=== PATIENT | female | born 1930 | race Caucasian/White ===

== ENCOUNTER 2018-01-18 14:35 | Inpatient (IN) | payer OTHER ==
[~2018-01-18] VITALS: Ht 154.9 cm; Wt 72.6 kg
--- NOTE | ~2018-01-18 | HC ---
[facility] [place] [address] CONSULTATION Name: LONA GOLDMAN Room #: 409-P [facility] IN M.R.#: [id number] Admission: 01/18/18 Attend Phys: Michael Haley MD Discharge: 01/21/18 Date of : 34 Report #: [id number] THIS REPORT FOR: //name// CC: Michael Haley NO PCP DATE OF SERVICE: 01/19/2018 REASON FOR CONSULTATION: Right tib-fib fracture. HISTORY OF PRESENT ILLNESS: The patient is an 87-year-old female who yesterday walked outside in the back of her house and had ice on her shoes. She fell on her marble floor and injured her right ankle. She was brought to the Emergency Room, found to have a comminuted distal right tib-fib fracture. She has been admitted for definitive treatment. PAST MEDICAL HISTORY: Significant for hypertension, GERD, glaucoma, legally blind. CURRENT MEDICATIONS: Have been reviewed and are on the chart. ALLERGIES: Include an UNKNOWN ANTIBIOTIC as well as CORTISONE. SOCIAL HISTORY: She does not smoke, drink or use illicit drugs. PHYSICAL EXAMINATION: GENERAL: This is a frail-appearing elderly female in no acute distress. She is alert, pleasant, cooperative with exam. EXTREMITIES: Examination of the right lower extremity shows her to have a short leg splint in place. She is neurologically intact. She has a brisk capillary refill. IMAGING: X-ray examination, three view of the right ankle, as well as CT scan of the right ankle shows her to have a distal third comminuted tibia and fibular fracture with some extension into the joint. ASSESSMENT: Right distal tibia-fibula fracture. PLAN: Treatment options were discussed today with her. I am recommending ORIF. We discussed postoperative course including prolonged nonweightbearing until healing of the fracture. She is understanding and wished to proceed. [facility] [address] [facility] [place] [address] CONSULTATION Name: LONA GOLDMAN Room #: 409-P [facility] IN .R.#: [id number] Admission: 01/18/18 Attend Phys: Michael Haley MD Discharge: 01/21/18 Date of : 34 Report #: [id number] Thank you for allowing me to participate in care of the patient. <ELECTRONICALLY SIGNED> By: Justo Mendoza MD 01/24/18 0724 0720 0736 Justo Mendoza MD /nt
--- NOTE | ~2018-01-18 | EKG ---
[address] [place] [address] ELECTROCARDIOGRAM REPORT Name: LONA GOLDMAN Room #: 409-P ADM IN M.R.#: [id number] Admission: 01/18/18 Attend Phys: Michael Haley MD Discharge: Date of : 34 Report #: [id number] THIS REPORT FOR: //name// [facility] ED Test Date: 2018-01-18 Test Time: 16:39:24 Pat Name: LONA GOLDMAN Department: Room: 409 Gender: F Cook Seafood: jerardo : 1930 Requested By: Dionne Ha Order Number: [id number] MD: Shubham Nielsen Measurements Intervals [place] Rate: 72 P: 50 LA: 177 QRS: -42 QRSD: 137 T: 126 QT: 419 QTc: 459 Interpretive Statements Sinus rhythm Left bundle branch block No previous ECG available for comparison Electronically Signed On 01-19-2018 8:39:16 [employer] by Shubham Nielsen [email or web address] <ELECTRONICALLY SIGNED> By: Shubham Nielsen MD, [facility] 01/19/18 0839 1639 1639 Shubham Nielsen MD, FACC /EPI
--- NOTE | ~2018-01-18 | O ---
[facility] [place] [address] OPERATIVE REPORT Name: LONA GOLDMAN Room #: 409-P [facility] IN M.R.#: [id number] Admission: 01/18/18 Attend Phys: Michael Haley MD Discharge: 01/21/18 Date of : 34 Report #: [id number] THIS REPORT FOR: //name// CC: Michael Haley NO PCP DATE OF SERVICE: 01/19/2018 PREOPERATIVE DIAGNOSIS: Right distal third tibia-fibula fracture. POSTOPERATIVE DIAGNOSIS: Right distal third tibia-fibula fracture. PROCEDURE: ORIF right distal third tibia and ORIF right distal third fibula. SURGEON: Justo Mendoza M.D. INVESTIGATIVE AGENT: Loretta Byers PA-C. INDICATIONS FOR INVESTIGATIVE AGENT: Throughout the case, extensive retraction and manipulation of the leg was required. This was afforded to me by my medical assistant dermatology. ANESTHESIA: LMA. IMPLANTS: Synthes short distal lateral fibular locking plate and a short distal medial tibial locking plate with multiple locking screws in each. TOURNIQUET TIME: 90 minutes. ESTIMATED BLOOD LOSS: 25 mL. COMPLICATIONS: None. SPECIMENS: None. CONDITION UPON LEAVING THE OPERATING ROOM: Stable. INDICATIONS FOR PROCEDURE: The patient is an 87-year-old female who fell yesterday at home and sustained a right distal third displaced tibia and fibula fracture. After discussion with her, she elected for ORIF. DESCRIPTION OF PROCEDURE: Risks, benefits, alternatives and complications were discussed in detail with the patient, including but not limited to risk of anesthesia; risk of damage to nerves, arteries or blood vessels; risk for infection or bleeding; risk for continued ankle pain, malunion, nonunion and need for reoperation. Informed consent was obtained from the patient. [address] [address] OPERATIVE REPORT Name: ARISTIDES GOLDMANSRINISabi Room #: 409-P DIS IN M.R.#: [id number] Admission: 01/18/18 Attend Phys: Michael Haley MD Discharge: 01/21/18 Date of : 34 Report #: [id number] The right ankle was appropriately marked in the preoperative holding area. She was brought to the operating room and placed in the supine position on the operating room table. LMA anesthesia was induced without complication and a tourniquet placed on the right thigh. Right lower extremity was prepped and draped in normal sterile fashion. Timeout was performed properly identifying the patient and procedure as well as the instrumentation. All in the operating room were in agreement. Right lower extremity was exsanguinated, tourniquet was inflated. Tourniquet time was approximately 90 minutes. Standard lateral approach to the fibula was made with a 15 blade through the skin. Dissection was taken down sharply to the fibula. It was decided to plate the fibula first to get the tibia out to the right in length. There was significant comminution and it was decided to just bridge plate this fibula fracture. A distal lateral fibular locking plate was selected. This was a short plate. The fracture was held out to length. The plate was applied and multiple distal locking screws as well as 2 proximal cortical screws and one proximal locking screw were placed. Fluoroscopic imaging was used to verify adequate fracture reduction and placement of hardware. Attention was then turned to the fixation of the tibia and a direct medial approach to the medial malleolus was made with a 15 blade through the skin. Dissection was taken down to the medial malleolus and care was taken to protect the saphenous vein and nerve. The dissection was taken posterior and anterior on the tibia. A Sotelo elevator was used to dissect proximally subperiosteally. Fracture site was identified and cleaned out and then held reduced with a [id number] reduction forceps. A distal medial locking plate was then slid submuscularly up the tibia and provisionally fixed with a K-wire. Fluoroscopic imaging was brought in to verify adequate placement of the plate as well as reduction of the fracture. Seven distal locking screws were then placed and 3 proximal locking screws were placed. The proximal 2 most screws were placed using a percutaneous technique. After this, final fluoroscopic images were taken to verify adequate fracture reduction and placement of hardware as was the case. The wounds were thoroughly irrigated with normal saline and closed with 2-0 Vicryl and 3-0 nylon. Soft dressing of Adaptic, 4 x 4, Webril and a short-leg splint were applied. The patient tolerated this procedure well and went to the recovery room under the care of anesthesia postoperatively. <ELECTRONICALLY SIGNED> By: Justo Mendoza MD 01/24/18 0724 1023 1044 Justo Mendoza MD /nt
[2018-01-18 14:36] VITALS: BP 150/62
[2018-01-18 15:12] LABS: ABSOLUTE NEUTROPHILS 4.7 thou/uL (1.4-8.2); BASOPHILS 1.2 % (0.0-2.0); EOSINOPHILS 4.9 % (0.0-3.0); HEMATOCRIT 38.5 % (37.0-47.0); HEMOGLOBIN 12.8 gm/dL (12.0-15.0); LYMPHOCYTES 16.4 % (24.0-44.0); MCH 31.3 pg (26.0-34.0); MCHC 33.4 g/dL (28.0-37.0); MCV 93.7 fL (80.0-100.0); MONOCYTES 9.3 % (1.0-8.0); PLATELET COUNT 325 thou/uL (150-400); POLYS 68.2 % (36.0-66.0); RDW 14.1 % (10.5-14.5); WBC 6.9 thou/uL (4.0-11.0)
[2018-01-18] MEDS ORDERED: COZAAR 50 MG TA50 M2 PO (15:14)
[2018-01-18] MEDS ORDERED: NORVASC5 MG PO (15:14)
[2018-01-18] MEDS ORDERED: BETIMOL5 ML OPHTHALMIC (15:15)
[2018-01-18] MEDS ORDERED: PRILOSEC 20 MG20 MG PO (15:15)
[2018-01-18] MEDS ORDERED: HYDROCODON-ACE1 EAC7 PO (15:20)
[2018-01-18 15:22] LABS: CALCIUM 9.6 mg/dL (8.5-10.1); CREATININE 1.3 mg/dL (0.6-1.0); POTASSIUM 4.3 mmol/L (3.5-5.1)
[2018-01-18 15:46] LABS: PROTIME 10.5 Seconds (9.3-11.4)
[2018-01-18 18:01] LABS: CHOLESTEROL 128 mg/dL (<200); HDL CHOLESTEROL 61 mg/dL (>40); LDL CHOLESTEROL 45 mg/dL (<100); TC:HDL 2.1 Ratio (Not establshd); TRIGLYCERIDE 110 mg/dL (<150); VLDL 22 mg/dL (<40)
[2018-01-18 18:02] LABS: SERUM ASSESSMENT Clear
[2018-01-18 18:10] VITALS: BP 160/62
[2018-01-18 18:32] LABS: FOLIC ACID 12.3 ng/mL (8.6-58.9)
[2018-01-18 18:52] VITALS: BP 131/68
[2018-01-18 20:40] VITALS: BP 141/72
[2018-01-18 22:41] LABS: URINE BILIRUBIN NEGATIVE (Negative); URINE BLOOD NEGATIVE (Negative); URINE CLARITY SL CLOUDY; URINE COLOR YELLOW; URINE GLUCOSE-RANDOM* NEGATIVE (Negative); URINE KETONES NEGATIVE (Negative); URINE LEUKOCYTES-REFLEX NEGATIVE (Negative); URINE NITRITE-REFLEX NEGATIVE (Negative); URINE PROTEIN (DIPSTICK) NEGATIVE (Negative); URINE SPECIFIC GRAVITY 1.025 (1.005-1.035); URINE UROBILINOGEN 0.2 E.U./dl (0.2-1.0)
[2018-01-19 00:02] VITALS: BP 145/62
[2018-01-19 03:36] VITALS: BP 145/67
[2018-01-19 04:50] LABS: ABSOLUTE NEUTROPHILS 5.1 thou/uL (1.4-8.2); BASOPHILS 0.8 % (0.0-2.0); EOSINOPHILS 0.8 % (0.0-3.0); HEMATOCRIT 35.3 % (37.0-47.0); HEMOGLOBIN 11.7 gm/dL (12.0-15.0); LYMPHOCYTES 15.8 % (24.0-44.0); MCH 30.8 pg (26.0-34.0); MCHC 33.3 g/dL (28.0-37.0); MCV 92.5 fL (80.0-100.0); MONOCYTES 10.2 % (1.0-8.0); PLATELET COUNT 310 thou/uL (150-400); POLYS 72.4 % (36.0-66.0); RBC 3.81 mil/uL (4.20-5.00)
[2018-01-19 04:56] LABS: CALCIUM 8.9 mg/dL (8.5-10.1); CREATININE 1.3 mg/dL (0.6-1.0); MAGNESIUM 1.9 mg/dL (1.8-2.4); POTASSIUM 4.2 mmol/L (3.5-5.1)
[2018-01-19 08:18] VITALS: BP 115/66
[2018-01-19 10:08] LABS: URINE BILIRUBIN NEGATIVE (Negative); URINE BLOOD NEGATIVE (Negative); URINE CLARITY CLEAR; URINE COLOR YELLOW; URINE GLUCOSE-RANDOM* NEGATIVE (Negative); URINE KETONES NEGATIVE (Negative); URINE LEUKOCYTES 1+ (Negative); URINE NITRITE NEGATIVE (Negative); URINE PROTEIN (DIPSTICK) TRACE (Negative); URINE SPECIFIC GRAVITY >= 1.030 (1.005-1.035); URINE UROBILINOGEN 0.2 E.U./dl (0.2-1.0)
[2018-01-19 10:19] LABS: BACTERIA 1-9 Few /HPF (None Seen); CASTS None Seen /LPF (None Seen); CRYSTALS None Seen /LPF (None Seen); SQUAMOUS 0-3 Few /LPF (0-3); URINE RBC None Seen /HPF (0-2); URINE WBC 6-15 Few /HPF (0-5)
[2018-01-19 16:22] VITALS: BP 130/49
[2018-01-19 20:00] VITALS: BP 105/49
[2018-01-20 04:00] VITALS: BP 130/66
[2018-01-20 07:15] VITALS: BP 136/62
[2018-01-20 12:27] LABS: HEMATOCRIT 30.5 % (37.0-47.0); HEMOGLOBIN 10.2 gm/dL (12.0-15.0); MCH 31.2 pg (26.0-34.0); MCHC 33.3 g/dL (28.0-37.0); MCV 93.8 fL (80.0-100.0); RBC 3.25 mil/uL (4.20-5.00); RDW 14.1 % (10.5-14.5); WBC 8.5 thou/uL (4.0-11.0)
[2018-01-20 12:46] LABS: CREATININE 1.2 mg/dL (0.6-1.0); MAGNESIUM 1.9 mg/dL (1.8-2.4); POTASSIUM 3.7 mmol/L (3.5-5.1)
[2018-01-20 15:59] VITALS: BP 131/45
[2018-01-20 20:00] VITALS: BP 125/44
[2018-01-21 04:00] VITALS: BP 132/53
[2018-01-21 06:53] LABS: MCH 31.1 pg (26.0-34.0); MCHC 33.3 g/dL (28.0-37.0); MCV 93.5 fL (80.0-100.0); RBC 3.2 mil/uL (4.20-5.00); RDW 14.2 % (10.5-14.5); WBC 7.1 thou/uL (4.0-11.0)
[2018-01-21 07:09] LABS: CALCIUM 8.7 mg/dL (8.5-10.1); CREATININE 1.3 mg/dL (0.6-1.0); POTASSIUM 4.1 mmol/L (3.5-5.1)
[2018-01-21 09:55] VITALS: BP 140/49
[2018-01-21] MEDS ORDERED: HYDROCODON-ACE1 EAC7 PO (12:06)
== END 2018-01-21 13:50 | DRG 492 ==
LOC: ER 14:35 → EROBS 15:39 → 4N 15:39
PROVIDERS: Emergency Medicine; Internal Medicine; Nurse Practitioner
DX: S82.241A Displaced spiral fracture of shaft of right tibia, initial encounter for closed fracture (principal); E43 Unspecified severe protein-calorie malnutrition; N17.9 Acute kidney failure, unspecified; H35.30 Unspecified macular degeneration; K21.9 Gastro-esophageal reflux disease without esophagitis; S82.441A Displaced spiral fracture of shaft of right fibula, initial encounter for closed fracture; H40.9 Unspecified glaucoma; H54.8 Legal blindness, as defined in USA; R09.02 Hypoxemia; E86.0 Dehydration; I77.1 Stricture of artery; I12.9 Hypertensive chronic kidney disease with stage 1 through stage 4 chronic kidney disease, or unspecified chronic kidney disease; E11.22 Type 2 diabetes mellitus with diabetic chronic kidney disease; N18.9 Chronic kidney disease, unspecified; W01.0XXA Fall on same level from slipping, tripping and stumbling without subsequent striking against object, initial encounter; E66.3 Overweight; Z68.30 Body mass index [BMI] 30.0-30.9, adult; Y93.89 Activity, other specified; Y92.89 Other specified places as the place of occurrence of the external cause; Y99.8 Other external cause status; Z87.891 Personal history of nicotine dependence; Z79.899 Other long term (current) drug therapy; Z88.1 Allergy status to other antibiotic agents; Z88.5 Allergy status to narcotic agent
CPT/HCPCS: 10091; 50010; 50101; 50386; 51741; 55430; 56527; 56528; 56667; 57091; 62110; 62900; 70005